=== PATIENT | male | born 1970 | race African-American/Black ===

== ENCOUNTER 2024-02-04 09:46 | Inpatient (IN) | payer OTHER ==
[~2024-02-04] VITALS: Ht 152.4 cm; Wt 54.5 kg
[2024-02-04 11:17] LABS: BASOPHILS % (AUTO) 0.3 % (0.0-2.0); EOSINOPHILS % (AUTO) 0.2 % (1.0-6.0); HEMATOCRIT 42.9 % (41-53); HEMOGLOBIN 14.4 g/dL (13.5-17.5); LYMPHOCYTES # (AUTO) 1.4 K/uL (1.0-4.8); LYMPHOCYTES % (AUTO) 15.4 % (22.0-44.0); MEAN CORPUSCULAR HEMOGLOBIN 31.7 pg (26.0-34.0); MEAN CORPUSCULAR HGB CONC 33.5 G/dL (31.0-37.0); MEAN CORPUSCULAR VOLUME 95 fL (80-100); MONOCYTES # (AUTO) 0.7 K/uL (0.1-1.0); MONOCYTES % (AUTO) 8.2 % (2.0-9.0); NEUTROPHILS # (AUTO) 6.7 K/uL (1.8-7.7); NEUTROPHILS % (AUTO) 75.9 % (40.0-70.0); PLATELET COUNT (AUTO) 157 K/uL (150-450); RED BLOOD CELL COUNT(AUTO) 4.53 MIL/uL (4.50-5.90); RED CELL DISTRIBUTION WIDTH 13.2 % (11.5-14.5); WHITE BLOOD COUNT (AUTO) 8.9 K/uL (4.5-11.0)
[2024-02-04] MEDS: AmLODIPine BESYLATE 5 MG TABLET PO ONE (11:23)
[2024-02-04 11:35] LABS: TROPONIN I-HIGH SENSITIVITY 5 ng/L (<76)
[2024-02-04 11:39] LABS: ANION GAP 7 mmol/L (8-16); CALCIUM, TOTAL 9.8 mg/dL (8.8-10.5); CARBON DIOXIDE 33 mmol/L (22-29); CHLORIDE 101 mmol/L (98-107); CREATININE 1.15 mg/dL (0.60-1.30); GLOMERULAR FILTR. RATE CALC > 60 mL/min (>60); GLUCOSE,RANDOM 90 mg/dL (70-110); POTASSIUM 4.1 mmol/L (3.5-5.1); SODIUM SERUM 141 mmol/L (136-145); UREA NITROGEN, BLOOD 25 mg/dL (7-18)
[2024-02-04 11:47] LABS: PROTHROMBIN TIME 10.6 SEC (9.4-11.6)
[2024-02-04 11:54] LABS: B-TYPE NATRIURETIC PEPTIDE < 5 pg/mL (0-100)
[2024-02-04 12:06] LABS: ALANINE AMINOTRANSFERASE 86 U/L (12-78); ALBUMIN 4.4 g/dL (3.4-5.0); ALKALINE PHOSPHATASE 166 U/L (46-116); ASPARTATE AMINOTRANSFERASE 61 U/L (15-37); BILIRUBIN,TOTAL 0.5 mg/dL (0.1-1.0); CREATINE KINASE, TOTAL ONLY 93 U/L (39-308); TOTAL PROTEIN, SERUM 8.4 g/dL (6.4-8.2)
[2024-02-04] MEDS: HydrALAZINE HCL 20 MG/ML VIAL IVP ONE ×2 (12:09→19:17)
[2024-02-04 12:20] LABS: APPEARANCE,URINE CLEAR (CLEAR); BILIRUBIN,URINE NEGATIVE (NEGATIVE); COLOR,URINE COLORLESS (YELLOW); GLUCOSE, URINE (UA) NEGATIVE (NEGATIVE); KETONES,URINE NEGATIVE (NEGATIVE); LEUKOCYTE ESTERASE ,URINE NEGATIVE (NEGATIVE); NITRATE,URINE NEGATIVE (NEGATIVE); OCCULT BLOOD,URINE NEGATIVE (NEGATIVE); PH,URINE 6.5 (5.0-8.0); PROTEIN,URINE NEGATIVE (NEGATIVE); SPECIFIC GRAVITIY, URINE 1.008 (1.003-1.030); UROBILINOGEN,URINE <=1.0 mg/dL (<=1.0)
[2024-02-04] MEDS: SODIUM CHLORIDE 0.9% 1,000 ML IV ONE (13:24)
[2024-02-04 13:26] LABS: PH,URINE DRUG SCREEN 6.5 (5.0-8.0)
[2024-02-04 13:40] LABS: ALCOHOL, URINE DRUG SCREEN NEGATIVE (NEGATIVE); AMPHET/METH SCREEN,URINE NEGATIVE (NEGATIVE); BARBITURATE SCREEN, URINE NEGATIVE (NEGATIVE); BENZODIAZEPINES SCREEN,URINE NEGATIVE (NEGATIVE); CANNABINOID SCREEN,URINE NEGATIVE (NEGATIVE); COCAINE SCREEN,URINE NEGATIVE (NEGATIVE); METHADONE SCREEN, URINE NEGATIVE (NEGATIVE); OPIATE SCREEN,URINE NEGATIVE (NEGATIVE); PHENCYCLIDINE SCREEN,URINE NEGATIVE (NEGATIVE)
[2024-02-04 14:05] LABS: GLUCOMETER DEV NAME(LOC) ERT.5; GLUCOSE,POINT OF CARE 144 MG/DL (70-110)
[2024-02-04] MEDS: LABETALOL HCL 5 MG/ML 20 ML VIAL IVP PRN (18:27)
[2024-02-04 19:03] LABS: LACTIC ACID 1.3 mmol/L (0.4-2.0); TROPONIN I-HIGH SENSITIVITY 10 ng/L (<76)
[2024-02-04 21:20] VITALS: BP 146/92; PULSE 104; RESP 18; TEMP 98.4
[2024-02-04] MEDS: SODIUM CHLORIDE 0.9% 250 ML IV ONE (23:43)
[2024-02-04 23:50] LABS: TROPONIN I-HIGH SENSITIVITY 10 ng/L (<76)
[2024-02-04 23:52] LABS: THYROID STIMULATING HORMONE 1.5 uIU/mL (0.36-3.74)
[2024-02-05 00:04] VITALS: BP 140/90; PULSE 101; RESP 19; TEMP 98
[2024-02-05 05:37] VITALS: BP 142/80; PULSE 98; RESP 20; TEMP 98.1
[2024-02-05 07:42] VITALS: BP 152/86; PULSE 89; RESP 18; TEMP 98.2
[2024-02-05] MEDS: AmLODIPine BESYLATE 5 MG TABLET PO SCH (09:46)
[2024-02-05] MEDS: METOPROLOL TARTRATE 25 MG TABLET PO SCH (09:46)
[2024-02-05 11:10] VITALS: BP 146/80; PULSE 81; RESP 18; TEMP 98.6
[2024-02-05 12:00] LABS: ANION GAP 8 mmol/L (8-16); CALCIUM, TOTAL 9.3 mg/dL (8.8-10.5); CARBON DIOXIDE 31 mmol/L (22-29); CHLORIDE 102 mmol/L (98-107); CREATININE 1.13 mg/dL (0.60-1.30); GLOMERULAR FILTR. RATE CALC > 60 mL/min (>60); GLUCOSE,RANDOM 143 mg/dL (70-110); POTASSIUM 3.9 mmol/L (3.5-5.1); SODIUM SERUM 141 mmol/L (136-145); UREA NITROGEN, BLOOD 22 mg/dL (7-18)
[2024-02-05] MEDS ORDERED: MAGNESIUM SULFATE 2 GM/WATER 50 ML IV ONE ×2 (12:30)
[2024-02-05] MEDS ORDERED: SODIUM CHLORIDE 0.9% 250 ML IV ONE (13:02)
[2024-02-05] MEDS: MAGNESIUM SULFATE 2 GM/WATER 50 ML IV ONE (13:08)
[2024-02-05] MEDS ORDERED: AMLO5TAB66 PO (13:46)
[2024-02-05] MEDS ORDERED: METO25 PO (13:47)
[2024-02-05 15:35] VITALS: BP 129/88; PULSE 85; RESP 18; TEMP 98.3
== END 2024-02-05 16:35 | disposition home or self-care (01) | DRG 305 ==
LOC: EMS 09:47 → 5S 19:01
PROVIDERS: ADMIT Internal Medicine; ATTEND Internal Medicine
DX: I16.1 Hypertensive emergency (principal); E87.20 Acidosis, unspecified; I49.3 Ventricular premature depolarization; N28.9 Disorder of kidney and ureter, unspecified; I10 Essential (primary) hypertension; Z82.49 Family history of ischemic heart disease and other diseases of the circulatory system
CPT/HCPCS: 70450; 71045; 76770; 80048; 80053; 80307; 81003; 82533; 82550; 82962; 83150; 83605; 83615; 83735; 83880; 84443; 84484; 84585; 85025; 85610; 85730; 93005; 93306; 99285; G0378; J0360; J3475; J3490; J7050; 36415-L1; 36415-TC